=== PATIENT | male | born 1945 | race Caucasian/White ===

== ENCOUNTER 2017-04-28 18:58 | Inpatient (IN) | payer OTHER, MEDICARE ==
--- NOTE | 2017-04-28 19:31 | ED Physician Chart ---
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 THE PATIENT DENIES HAVING ANY PAST PSYCH HISTORY. HE DENIES CHEST PAIN AND ABDOMINAL PAIN AND FEVER. HE HAS BEEN TO THIS ER MULTIPLE TIMES FOR PSYCHOSIS. 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) Review:: Nurse's Note Reviewed, Old Chart Reviewed Review of Systems - Review of Systems General/Constitutional: No fever, No chills, No weight loss, No weakness, No diaphoresis, No edema, No loss of appetite Skin: No skin lesions, No rash, No bruising Head: No headache, No light-headedness Eyes: No loss of vision, No pain, No diplopia ENT: No earache, No nasal drainage, No sore throat, No tinnitus Neck: No neck pain, No swelling, No thyromegaly, No stiffness, No mass noted Cardio Vascular: No chest pain, No palpitations, No PND, No orthopnea, No edema Pulmonary: No SOB, No cough, No sputum, No wheezing GI: No nausea, No vomiting, No diarrhea, No pain, No melena, No hematochezia, No constipation, No hematemesis G/U: No dysuria, No frequency, No hematuria Musculoskeletal: No bone or joint pain, No back pain, No muscle pain Endocrine: No polyuria, No polydipsia Psychiatric: Prior psych history, Depression, Anxiety, Suicidal ideation Hematopoietic: No bruising, No lymphadenopathy Allergic/Immuno: No urticaria, No angioedema Neurological: No syncope, No focal symptoms, No weakness, No paresthesia, No headache, No seizure, No dizziness, No confusion, No vertigo Past Medical History - Past Medical History Obtainable: Yes Past Medical History: CAD Family History: None Social History: Non Smoker, No Alcohol, No Drug Use, , Care Facility Surgical History: CABG Psychiatricy History: Depression, Bipolar Medication: Reviewed Family Medical History - Family Member Mother History Unknown: Yes Ethnicity: Unknown Living Status: Unknown Hx Family Cancer: No Hx Family Coronary Artery Disease: No Hx Family Congestive Heart Failure: No Hx Family Hypertension: No Hx Family Stroke: No Hx Family Diabetes: No Hx Family Seizures: No Hx Family Dementia: No Hx Family AIDS: No Hx Family HIV: No Hx Family COPD: No Hx Family Hepatitis: No Hx Family Psychiatric Problems: No Hx Family Tuberculosis: No Physical Exam - Physical Examination General/Constitutional: Awake, Well-developed, well-nourished, Alert, No distress, GCS 15, Non-toxic appearing, Ambulatory Head: Atraumatic Eyes: Lids, conjuctiva normal, PERRL, EOMI Skin: Nl inspection, No rash, No skin lesions, No ecchymosis, Well hydrated, No lymphadenopathy ENMT: External ears, nose nl, Nasal exam nl, Lips, teeth, gums nl Neck: Nontender, Full ROM w/o pain, No JVD, No nuchal rigidity, No bruit, No mass, No stridor Respiratory: Nl effort/Exclusion, Clear to Auscultation, No Wheeze/Rhonchi/Rales Cardio Vascular: RRR, No murmur, gallop, rubs, NL S1 S2 GI: No tenderness/rebounding/guarding, No organomegaly, No hernia, Normal BS's, Nondistended, No mass/bruits, No McBurney tenderness : No CVA tenderness Extremities: No tenderness or effusion, Full ROM, normal strength in all extremities, No edema, Normal digits & nails Neuro/Psych: Alert/oriented, DTR's symmetric, Normal sensory exam, Normal motor strength, Judgement/insight normal, Normal gait, No focal deficits Misc: normal gait, Normal back, No paraspinal tenderness Other:: DEPRESSED MOOD Labs/Radiology/EKG Results - Lab Results Results: Abnormal Lab Results 04/28/17 04/28/17 04/28/17 19:30 19:30 19:30 WBC 5.4 RBC 4.28 Hgb 13.5 Hct 40.3 MCV 94.2 MCH 31.4 H MCHC Differential 33.3 RDW 13.3 Plt Count 108 L D MPV 9.2 Neutrophils % 63.8 Lymphocytes % 22.3 Monocytes % 8.1 Eosinophils % 2.2 Basophils % 3.6 H PT 12.0 H INR 1.14 PTT (Actin FS) 29.5 Sodium Potassium Chloride Carbon Dioxide Anion Gap BUN Creatinine Est GFR ( Amer) Est GFR (Non-Af Amer) BUN/Creatinine Ratio Glucose Calcium Total Bilirubin AST ALT Alkaline Phosphatase Troponin I Total Protein Albumin Globulin Albumin/Globulin Ratio Triglycerides 94 Cholesterol 186 LDL Cholesterol Direct 129 HDL Cholesterol 47 TSH 04/28/17 04/28/17 04/28/17 19:30 19:30 19:30 WBC RBC Hgb Hct MCV MCH MCHC Differential RDW Plt Count MPV Neutrophils % Lymphocytes % Monocytes % Eosinophils % Basophils % PT INR PTT (Actin FS) Sodium 138 Potassium 4.1 Chloride 107 Carbon Dioxide 25.4 Anion Gap 9.7 BUN 31 H Creatinine 1.2 Est GFR ( Amer) TNP Est GFR (Non-Af Amer) TNP BUN/Creatinine Ratio 25.8 Glucose 155 H Calcium 9.4 Total Bilirubin 0.5 AST 28 ALT 20 Alkaline Phosphatase 38 Troponin I 0.03 Total Protein 6.7 Albumin 4.2 Globulin 2.5 Albumin/Globulin Ratio 1.7 Triglycerides Cholesterol LDL Cholesterol Direct HDL Cholesterol TSH 17.51 H Assessment - Assessment General Assessment: THIS PATIENT SHOULD BE HOSPITALIZED AND 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 A TSH THIS HIGH COULD CAUSE HIS MANSOOR FEELING OVER THE PAST FEW DAYS. ED Septic Shock - . Is Septic Shock (SBP<90, OR Lactate>4 mmol\L) present?: No - <6hrs of presentation: Vital Signs: Vital Signs - 8 hr 04/28/17 19:17 Temp 98.8 F HR 79 RR 16 BP 115/62 O2 Sat % 96 Reassessment (Disposition) - Reassessment Reassessment Condition:: Unchanged - Diagnosis Diagnosis:: SEVERE HYPOTHYROIDISM CHRONIC HEART DISEASE DEPRESSION - Patient Disposition Discharge/Transfer:: Acute Care w/in this hosp Admitting Medical Physician:: Didier Monterroso Condition at Disposition:: Unchanged ED Discharge Plan - Patient Disposition Admit/Discharge/Transfer: Acute Care w/in this hosp Condition at Disposition: Unchanged
[2017-04-28 19:55] LABS: % BASOPHILS 3.6 % (0.0-2.0); % EOSINOPHILS 2.2 % (0.0-5.0); % LYMPHOCYTES 22.3 % (20.0-50.0); % MONOCYTES 8.1 % (2.0-10.0); % NEUTROPHILS 63.8 % (40.0-80.0); HEMATOCRIT 40.3 % (39.0-49.0); HEMOGLOBIN 13.5 gm/dL (12.6-17.4); MEAN CELL VOLUME 94.2 fl (80-99); MEAN CORPUSCULAR HEMOGLOBIN 31.4 pg (27.0-31.0); MEAN CORPUSCULAR HGB CONC 33.3 pg (28.0-36.0); MEAN PLATELET VOLUME 9.2 fl; NEUTROPHILE ABSOLUTE 3.5 Th/cmm (1.8-8.0); RED BLOOD COUNT 4.28 Mil/cmm (3.80-5.80); RED CELL DISTRIBUTION WIDTH 13.3 % (11.5-20.0); WHITE BLOOD COUNT 5.4 Th/cmm (4.8-10.8)
[2017-04-28 19:59] LABS: PLATELET COUNT 108 Th/cmm (150-400)
[2017-04-28 20:02] LABS: INR 1.14 (0.5-1.4)
[2017-04-28 20:05] LABS: CHOLESTEROL 186 mg/dL (<200); TRIGLYCERIDES 94 mg/dL (<150)
[2017-04-28 20:07] LABS: ALB/GLOB RATIO 1.7 (1.0-1.8); ALKALINE PHOSPHATASE 38 U/L (34-104); ANION GAP 9.7 (7.0-16.0); BILIRUBIN,TOTAL 0.5 mg/dL (0.3-1.0); BUN - UREA NITROGEN 31 mg/dL (7-25); BUN/CREATININE RATIO 25.8; CALCIUM SERUM 9.4 mg/dL (8.6-10.3); CARBON DIOXIDE 25.4 mEq/L (21.0-31.0); CHLORIDE 107 mEq/L (98-107); CREATININE - SERUM 1.2 mg/dL (0.7-1.3); GLUCOSE 155 mg/dL (70-105); POTASSIUM SERUM 4.1 mEq/L (3.5-5.1); SGOT 28 U/L (13-39); SGPT/ALT 20 U/L (7-52); SODIUM SERUM 138 mEq/L (136-145)
[2017-04-28] MEDS ORDERED: D5-0.45NS 1,000 ML IV SCH (21:34)
--- NOTE | 2017-04-28 23:09 | Admit Criteria Form ---
Admit Criteria Forms - Admit Criteria Diagnosis: PSYCHIATRIC DISORDERS (Place 'X' for any and all applicable criteria): Ongoing inpatient care may be needed for 1 or more of the following(1)(2)(3)(4)( 6)(7)(8): [X ]I. Danger to self or others not manageable at lower level of care. [ ]II. Grave disability (eg, inability to perform self care necessary at lower level of care) [ ]III. Agitation or inappropriate behavior interfering with care for primary condition (eg, attempting to discontinue lines or drains prematurely, unable to cooperate with respiratory care) [ ]IV. Severe disability or disorder indicated by ALL of the following: [ ]a) Severe behavioral health disorder-related symptoms or condition indicated by 1 or more of the following: [ ]i) Severe problem with cognition, memory, judgment, or impulse control [ ]ii) Severe clinical manifestations (eg, hallucinations, delusions, other acute psychotic symptoms, leatha, extreme agitation or anxiety) [ ]b) Patient management at lower level of care is not feasible until acute intervention or modification is initiated. Extended stay beyond goal length of stay for the primary condition may be needed until ALLof the following are present(1)(2)(3)(4)7)24)(23): [ ]a) Danger to self or others is absent or manageable at lower level of care [ ]b) Behavior crisis management, including physical or chemical restraints, is required and is not available at a lower level of care. [ ]c) Behavioral symptoms (e.g., agitation, somnolence, inappropriate behavior) are present, and are not manageable at a lower level of care. [ ]d) Patient cannot understand follow-up treatment and crisis plan. [ ]e) Provider and supports are sufficiently available at lower level of care. [ ]f) Patient can participate (e.g., verify absence of plan for harm) and is in needed of monitoring. The original [facility] content created by [facility] [employer] has been revised. The portions of the content which have been revised are identified through the use of italic text or in bold, and [facility] [employer] has neither reviewed nor approved the modified material. All other unmodified content is copyright [facility]. Please see references footnoted in the original [facility] edition 2017 Admit Criteria Met?: Yes
[2017-04-29] MEDS: Levothyroxine 0.05 Mg Tab PO SCH (06:57)
[2017-04-29] MEDS ORDERED: Levothyroxine 0.125 Mg Tab PO SCH (07:30)
[2017-04-29] MEDS ORDERED: Levothyroxine 0.025 Mg Tab PO SCH (07:30)
--- NOTE | 2017-04-29 09:49 | Diagnostic Imaging Report ---
Portable chest x-ray HISTORY: Pain The heart is enlarged. Surgical suture material and clips noted over the heart. No acute focal pulmonary processes. IMPRESSION: 1. No acute pulmonary processes 2. Cardiomegaly 3. Surgical changes
[2017-04-29 16:10] LABS: URINE BILIRUBIN NEGATIVE (NEGATIVE); URINE BLOOD TRACE (NEGATIVE); URINE COLOR YELLOW; URINE GLUCOSE (UA) NEGATIVE (NEGATIVE); URINE KETONE NEGATIVE (NEGATIVE)
[2017-04-29 16:11] LABS: URINE BACTERIA NONE SEEN /hpf (NONE SEEN); URINE EPITHELIAL CELLS NONE SEEN /lpf (FEW); URINE PROTEIN NEGATIVE (NEGATIVE); URINE RBC 0-2 /hpf (0-5); URINE WBC NONE SEEN /hpf (0-5)
[2017-04-29] MEDS: Escitalopram Oxalate 5 mg Tab PO SCH (16:51)
--- NOTE | 2017-04-29 19:00 | History & Physical ---
ADMIT DATE: 04/29/2017 CHIEF COMPLAINT: Depression. HISTORY OF PRESENT ILLNESS: A 71-year-old male presents after feeling increasingly depressed. He was evaluated in the Emergency Room. There, he was slated to the [facility], but there was no placement. Because of the patient's new onset of hypothyroidism, he was admitted for further medical observation. The patient is seen in hospital bed. He is awake and alert. He is a poor historian and appears somewhat forgetful. Denies any shortness of breath, chest pain, swelling, change in bowel habits. The patient states that he has been feeling increasingly depressed and hopeless. Denies taking any medications at home. PAST MEDICAL HISTORY: The patient denies any past medical history. When asked about his thoracotomy scar, he is not sure what kind of surgery he had. When asked whether he has had coronary bypass, he says yes, but could not give more details. MEDICATIONS: He does not take any medications. ALLERGIES: No known drug allergies. SOCIAL HISTORY: Denies tobacco, alcohol or illicit drug use. FAMILY HISTORY: Noncontributory. REVIEW OF SYSTEMS: IMMUNOLOGIC: No recurrent infection. CARDIOVASCULAR: No heart disease or hypertension. GASTROINTESTINAL: Denies nausea, vomiting, diarrhea. ENDOCRINE: No diabetes or thyroid disorder. NEUROLOGIC: No seizures or stroke. HEMATOLOGIC: No bleeding or clotting disorder. PHYSICAL EXAMINATION: GENERAL: The patient is awake and alert, in no acute distress. VITAL SIGNS: Temperature 97.0, pulse 67, respirations 18, blood pressure 139/76. HEENT: Pupils equally round, anicteric sclerae. NECK: Supple, no JVD, mass or bruit. LUNGS: Clear to auscultation. CARDIOVASCULAR: S1, S2. Regular rate and rhythm. ABDOMEN: Soft, nontender, positive bowel sounds. EXTREMITIES: No clubbing, cyanosis or edema. The patient has left ankle ____. NEUROLOGIC: Moves all extremities equally. No lateralizing signs. LABORATORY DATA: Platelets are 108, glucose is 150. TSH is 1.751. IMPRESSION: 1. Depression. 2. Hypothyroidism. 3. Coronary artery disease. PLAN: Admit to med/surg. The patient was ____ Synthroid for his hypothyroidism and aspirin for his coronary disease. JOB# [id number]
--- NOTE | 2017-04-29 21:07 | Consultation ---
DATE OF CONSULTATION: 04/29/2017 REASON FOR CONSULTATION: Depression. HISTORY OF PRESENT ILLNESS: A 71-year-old male with history of hypothyroidism, was living in a board and care, was apparently suicidal, depressed. The patient states he has been depressed for quite some time, was having suicidal thoughts of potentially hanging himself about a week ago, still feeling suicidal and depressed. Sleeping "too much." No change in appetite, states that he is having a lot of difficulty getting over his , who he found cheating him about 10 years ago, estranged from family. PAST PSYCHIATRIC HISTORY: Denies. SOCIAL HISTORY: Born in [place], for 11 years from , 6 children, also estranged from them, using marijuana, living in a board and care. FAMILY HISTORY: Mother with major depression. MENTAL STATUS EXAMINATION: Stated age. Fair eye contact. Speech within normal limits. Mood depressed. Affect sullen. Thought processes were grossly linear. Thought content: The patient was alluding to SI. No HI. No overt psychotic symptoms at this time. Insight and judgment seemed reasonable. PROVISIONAL DIAGNOSIS: Major depression, chronic, severe. No psychosis, possibly and ____ mood disorder due to generalized medical conditions significantly, hypothyroidism and also marijuana use disorder, unspecified. RECOMMENDATIONS AND PLAN: The patient may need a psychiatric hospitalization. Currently denying any SI, but he had been suicidal. Depressive symptoms may be due to his hypothyroidism, but due to the length of his depression, there may also be a chemical component. We will initiate low dose Lexapro for now. We will continue to monitor and follow up. [facility]# [id number]
[2017-04-30] MEDS: Levothyroxine 0.05 Mg Tab PO SCH (06:44)
[2017-04-30] MEDS: Escitalopram Oxalate 5 mg Tab PO SCH (16:52)
--- NOTE | 2017-04-30 22:15 | Progress Notes ---
DATE: 04/30/2017 SUBJECTIVE: The patient seen, chart reviewed, discussed with staff. The patient seems to be improving. States his mood is "better." He states he feels "more optimistic. I can think more clearly." Sleep," so, so." Eating well. The patient currently states he feels hopeful more motivated about things. The patient is with better attention ADLs, good eye contact. Speech within normal limits. Mood "better." Affect brighter. Thought process is linear, no SI, no HI. No psychotic symptoms noted. Better insight, better judgment. ASSESSMENT AND PLAN: The patient does seem to be improving. Continue medications at current dose. The patient seems to be tolerating small dose of Lexapro. We will titrate over the next few days. We will continue to monitor and followup at this time. JOB# [id number]
[2017-05-01] MEDS: Levothyroxine 0.05 Mg Tab PO SCH (06:34)
[2017-05-01 07:20] LABS: % BASOPHILS 0.3 % (0.0-2.0); % EOSINOPHILS 1.3 % (0.0-5.0); % LYMPHOCYTES 19.9 % (20.0-50.0); % MONOCYTES 10.7 % (2.0-10.0); % NEUTROPHILS 67.8 % (40.0-80.0); MEAN CELL VOLUME 94.3 fl (80-99); MEAN CORPUSCULAR HEMOGLOBIN 31.7 pg (27.0-31.0); MEAN CORPUSCULAR HGB CONC 33.6 pg (28.0-36.0); MEAN PLATELET VOLUME 8.6 fl; NEUTROPHILE ABSOLUTE 6.2 Th/cmm (1.8-8.0); RED BLOOD COUNT 4.92 Mil/cmm (3.80-5.80); RED CELL DISTRIBUTION WIDTH 13.5 % (11.5-20.0)
[2017-05-01 07:39] LABS: HEMATOCRIT 46.4 % (39.0-49.0); HEMOGLOBIN 15.6 gm/dL (12.6-17.4); PLATELET COUNT 153 Th/cmm (150-400); WHITE BLOOD COUNT 9.1 Th/cmm (4.8-10.8)
[2017-05-01 07:45] LABS: ANION GAP 9.8 (7.0-16.0); BUN - UREA NITROGEN 25 mg/dL (7-25); CALCIUM SERUM 9.9 mg/dL (8.6-10.3); CARBON DIOXIDE 26.2 mEq/L (21.0-31.0); CHLORIDE 104 mEq/L (98-107); GLUCOSE 111 mg/dL (70-105); SODIUM SERUM 136 mEq/L (136-145)
[2017-05-01] MEDS: Escitalopram Oxalate 5 mg Tab PO SCH ×2 (08:14→18:51)
--- NOTE | 2017-05-02 04:15 | Progress Notes ---
DATE: 05/01/[address] Rothman. Case was discussed with staff of the patient, reviewed records. The patient was seen by Dr. Reeves twice and I discussed the care with him just prior to my seeing the patient in which he felt the patient has shown progress. The staff believes he is doing much better. However, when I talked to the patient, he told me that he has been unable to sleep well. He used to being on Seroquel. He reported that he lives in a nursing home and that his left him with another man 10 years ago. He has not seen his 6 children in 9 years and he does not have much support. He has been compliant with the medication with no side effects and he says, "I am sleeping well." He denies any current intent to harm himself, so I will be initiating back on Seroquel to help him with sleep and discussed side effects. He is to be on 300 mg at bedtime, because of his age, I will be starting him on 50 mg Thank you very much for allowing me to participate in the care of this most interesting gentleman. The patient is no longer expressing any intent to harm himself or anybody. However, he is still not sleeping well, so he is still not ready to be discharged to a lesser level of care. JOB# [id number]
[2017-05-02] MEDS: Levothyroxine 0.075 Mg Tab PO SCH (06:53)
[2017-05-02] MEDS: Escitalopram Oxalate 5 mg Tab PO SCH (08:56)
[2017-05-03] MEDS: Levothyroxine 0.075 Mg Tab PO SCH (06:56)
[2017-05-04] MEDS: Levothyroxine 0.075 Mg Tab PO SCH (06:57)
--- NOTE | 2017-05-26 18:51 | Discharge Summary ---
DATE OF DISCHARGE: 05/04/2017 FINAL DIAGNOSES: 1. Severe depression. 2. Hypothyroidism. 3. Coronary artery disease. REVIEW OF HISTORY: This 71-year-old male with long history of depression, hypothyroidism, coronary artery disease, ____ with severe depression, admitted to the hospital. Psych evaluation ordered. Temperature was 97, heart rate 67. Chest is clear to auscultation. Abdomen is soft, bowel sounds positive. Extremities, no edema. Neurologic, ____. He was awake, alert, oriented. The patient will resume his medication and diet. COURSE OF HOSPITALIZATION: The patient was evaluated by the psychiatrist and suggest to resume his medication. On 04/30/2017, the patient was feeling better, tolerating well. No chest pain or shortness of breath, no nausea, no vomiting, no fever or chills. On 05/02/2017, the patient was feeling well, no chest pain, no shortness of breath. His depression is improving. DISPOSITION: On 05/04/2017, the patient was clinically stable and cleared by Psychiatry. DISPOSITION: The patient transferred to the [facility] on 05/04/2017 to continue his medications and diet. CONDITION ON DISCHARGE: Stable. MEDICATIONS: Follow discharge reconciliation. [facility]# [id number]
== END 2017-05-04 19:35 | disposition home or self-care (01) | DRG 885 ==
LOC: ER 18:58 → TELE 21:19
PROVIDERS: ADMIT Family Medicine; ATTEND Family Medicine
DX: F33.2 Major depressive disorder, recurrent severe without psychotic features (principal); I51.89 Other ill-defined heart diseases; E03.9 Hypothyroidism, unspecified; F12.90 Cannabis use, unspecified, uncomplicated; I25.10 Atherosclerotic heart disease of native coronary artery without angina pectoris; Z95.1 Presence of aortocoronary bypass graft; Z91.5 Personal history of self-harm; Z81.8 Family history of other mental and behavioral disorders
CPT/HCPCS: 36415-UA; 71010-TC; 80048-TC; 80053-TC; 80061-TC; 81001-TC; 84443-TC; 84484-TC; 85025-TC; 85610-TC; 85730-TC; 86592-TC; 93005; Z7610

== ENCOUNTER 2017-06-09 17:36 | Emergency (ER) | payer MEDICARE, OTHER ==
[2017-06-09 17:56] LABS: URINE BILIRUBIN NEGATIVE (NEGATIVE); URINE BLOOD NEGATIVE (NEGATIVE); URINE GLUCOSE (UA) NEGATIVE (NEGATIVE); URINE KETONE TRACE mg/dL (NEGATIVE); URINE PH 7.5 (4.6 - 8.0); URINE PROTEIN TRACE mg/dL (NEGATIVE)
[2017-06-09 17:57] LABS: % BASOPHILS 1.8 % (0.0-2.0); % LYMPHOCYTES 32.2 % (20.0-50.0); % MONOCYTES 9.7 % (2.0-10.0); % NEUTROPHILS 54.3 % (40.0-80.0); HEMOGLOBIN 14.2 gm/dL (12.6-17.4); MEAN CORPUSCULAR HEMOGLOBIN 31.5 pg (27.0-31.0); MEAN CORPUSCULAR HGB CONC 34.2 pg (28.0-36.0); NEUTROPHILE ABSOLUTE 3.1 Th/cmm (1.8-8.0); PLATELET COUNT 143 Th/cmm (150-400); RED CELL DISTRIBUTION WIDTH 13.7 % (11.5-20.0)
--- NOTE | 2017-06-09 18:00 | ED Physician Chart ---
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 HE DENIES FEVER, NAUSEA AND VOMITING. HE STATES THAT HE HAS HAD URINARY TRACT INFECTIONS IN THE PAST. Allergies:: Allergies Allergy/AdvReac Type Severity Reaction Status Date / Time No Known Allergies Allergy Verified 04/28/17 21:29 Vitals:: Vital Signs - 8 hr 06/09/17 17:47 Temp 97.9 F HR 90 RR 17 BP 135/85 O2 Sat % 96 Historian:: Patient Review:: Nurse's Note Reviewed Review of Systems - Review of Systems General/Constitutional: No fever, No chills, No weight loss, No weakness, No diaphoresis, No edema, No loss of appetite Skin: No skin lesions, No rash, No bruising Head: No headache, No light-headedness Eyes: No loss of vision, No pain, No diplopia ENT: No earache, No nasal drainage, No sore throat, No tinnitus Neck: No neck pain, No swelling, No thyromegaly, No stiffness, No mass noted Cardio Vascular: No chest pain, No palpitations, No PND, No orthopnea, No edema Pulmonary: No SOB, No cough, No sputum, No wheezing GI: No nausea, No vomiting, No diarrhea, No pain, No melena, No hematochezia, No constipation, No hematemesis G/U: Dysuria, No frequency, No hematuria Musculoskeletal: No bone or joint pain, No back pain, No muscle pain Endocrine: No polyuria, No polydipsia Psychiatric: No prior psych history, No depression, No anxiety, No suicidal ideation Hematopoietic: No bruising, No lymphadenopathy Allergic/Immuno: No urticaria, No angioedema Neurological: No syncope, No focal symptoms, No weakness, No paresthesia, No headache, No seizure, No dizziness, No confusion, No vertigo Past Medical History - Past Medical History Obtainable: Yes Past Medical History: HTN, DM, Arthritis Family Medical History - Family Member Mother History Unknown: Yes Ethnicity: Unknown Living Status: Unknown Hx Family Cancer: No Hx Family Coronary Artery Disease: No Hx Family Congestive Heart Failure: No Hx Family Hypertension: No Hx Family Stroke: No Hx Family Diabetes: No Hx Family Seizures: No Hx Family Dementia: No Hx Family AIDS: No Hx Family HIV: No Hx Family COPD: No Hx Family Hepatitis: No Hx Family Psychiatric Problems: No Hx Family Tuberculosis: No Physical Exam - Physical Examination General/Constitutional: Awake, Well-developed, well-nourished, Alert, No distress, GCS 15, Non-toxic appearing, Ambulatory Head: Atraumatic Eyes: Lids, conjuctiva normal, PERRL, EOMI Skin: Nl inspection, No rash, No skin lesions, No ecchymosis, Well hydrated, No lymphadenopathy ENMT: External ears, nose nl, Nasal exam nl, Lips, teeth, gums nl Neck: Nontender, Full ROM w/o pain, No JVD, No nuchal rigidity, No bruit, No mass, No stridor Respiratory: Nl effort/Exclusion, Clear to Auscultation, No Wheeze/Rhonchi/Rales Cardio Vascular: RRR, No murmur, gallop, rubs, NL S1 S2 GI: No tenderness/rebounding/guarding, No organomegaly, No hernia, Normal BS's, Nondistended, No mass/bruits, No McBurney tenderness : No CVA tenderness Extremities: No tenderness or effusion, Full ROM, normal strength in all extremities, No edema, Normal digits & nails Neuro/Psych: Alert/oriented, DTR's symmetric, Normal sensory exam, Normal motor strength, Judgement/insight normal, Mood normal, Normal gait, No focal deficits Misc: normal gait, Normal back, No paraspinal tenderness Labs/Radiology/EKG Results - Lab Results Results: Abnormal Lab Results 06/09/17 06/09/17 06/09/17 17:40 17:49 17:49 WBC 5.6 D RBC 4.50 Hgb 14.2 Hct 41.4 D MCV 92.0 MCH 31.5 H MCHC Differential 34.2 RDW 13.7 Plt Count 143 L MPV 8.0 Neutrophils % 54.3 Lymphocytes % 32.2 Monocytes % 9.7 Eosinophils % 2.0 Basophils % 1.8 Sodium 138 Potassium 4.1 Chloride 107 Carbon Dioxide 26.0 Anion Gap 9.1 BUN 28 H Creatinine 1.4 H Est GFR ( Amer) TNP Est GFR (Non-Af Amer) TNP BUN/Creatinine Ratio 20.0 Glucose 153 H Calcium 9.9 Total Bilirubin 0.4 AST 25 ALT 14 Alkaline Phosphatase 38 Troponin I Total Protein 6.7 Albumin 4.3 Globulin 2.4 Albumin/Globulin Ratio 1.8 TSH Urine Source CLEAN C Urine Color YELLOW Urine Clarity SLIGHT CLOUDY Urine pH 7.5 Ur Specific [place] 1.020 Urine Protein TRACE Urine Glucose (UA) NEGATIVE Urine Ketones TRACE Urine Blood NEGATIVE Urine Nitrate NEGATIVE Urine Bilirubin NEGATIVE Urine Urobilinogen 1.0 Ur Leukocyte Esterase NEGATIVE Urine RBC 0-1 Urine WBC 0-2 Ur Epithelial Cells RARE Amorphous Sediment MODERATE URATES Urine Bacteria FEW 06/09/17 06/09/17 17:49 17:49 WBC RBC Hgb Hct MCV MCH MCHC Differential RDW Plt Count MPV Neutrophils % Lymphocytes % Monocytes % Eosinophils % Basophils % Sodium Potassium Chloride Carbon Dioxide Anion Gap BUN Creatinine Est GFR ( Amer) Est GFR (Non-Af Amer) BUN/Creatinine Ratio Glucose Calcium Total Bilirubin AST ALT Alkaline Phosphatase Troponin I 0.03 Total Protein Albumin Globulin Albumin/Globulin Ratio TSH 26.27 H Urine Source Urine Color Urine Clarity Urine pH Ur Specific [place] Urine Protein Urine Glucose (UA) Urine Ketones Urine Blood Urine Nitrate Urine Bilirubin Urine Urobilinogen Ur Leukocyte Esterase Urine RBC Urine WBC Ur Epithelial Cells Amorphous Sediment Urine Bacteria Assessment - Assessment General Assessment: dysuriia ED Septic Shock - . Is Septic Shock (SBP<90, OR Lactate>4 mmol\L) present?: No - <6hrs of presentation: Vital Signs: Vital Signs - 8 hr 06/09/17 17:47 Temp 97.9 F HR 90 RR 17 BP 135/85 O2 Sat % 96 Reassessment (Disposition) - Reassessment Reassessment Condition:: Unchanged - Diagnosis Diagnosis:: painful urination - Aftercare/Follow up Instructions Aftercare/Follow-Up Instructions:: Counseled pt regarding lab results/diagnosis & need follow up, Refer to Discharge Instructions, Counseled pt & family regarding lab results/diagnosis & need follow up - Patient Disposition Discharge/Transfer:: Home Condition at Disposition:: Unchanged ED Discharge Plan - Patient Disposition Admit/Discharge/Transfer: PT DISCHARGED HOME Condition at Disposition: Unchanged Instructions: Urinary Tract Infection, [id number], Dysuria
[2017-06-09 18:02] LABS: HEMATOCRIT 41.4 % (39.0-49.0); WHITE BLOOD COUNT 5.6 Th/cmm (4.8-10.8)
[2017-06-09 18:06] LABS: URINE AMORPHOUS SEDIMENT MODERATE URATES (NONE SEEN); URINE BACTERIA FEW /hpf (NONE SEEN); URINE COLOR YELLOW; URINE EPITHELIAL CELLS RARE /lpf (FEW); URINE RBC 0-1 /hpf (0-5); URINE WBC 0-2 /hpf (0-5)
[2017-06-09 18:14] LABS: ALB/GLOB RATIO 1.8 (1.0-1.8); ALKALINE PHOSPHATASE 38 U/L (34-104); ANION GAP 9.1 (7.0-16.0); BILIRUBIN,TOTAL 0.4 mg/dL (0.3-1.0); BUN - UREA NITROGEN 28 mg/dL (7-25); CALCIUM SERUM 9.9 mg/dL (8.6-10.3); CHLORIDE 107 mEq/L (98-107); CREATININE - SERUM 1.4 mg/dL (0.7-1.3); GLUCOSE 153 mg/dL (70-105); POTASSIUM SERUM 4.1 mEq/L (3.5-5.1); SGOT 25 U/L (13-39); SGPT/ALT 14 U/L (7-52); SODIUM SERUM 138 mEq/L (136-145)
== END 2017-06-09 19:00 | disposition home or self-care (01) ==
LOC: ER 17:36
DX: R30.9 Painful micturition, unspecified (principal); I10 Essential (primary) hypertension; E11.9 Type 2 diabetes mellitus without complications
CPT/HCPCS: 36415-UA; 80053-TC; 81001-TC; 84443-TC; 84484-TC; 85025-TC; Z7502